=== PATIENT | female | born 1995 | race African-American/Black ===

== ENCOUNTER 2017-02-04 11:24 | Emergency (ER) | payer OTHER ==
[~2017-02-04] VITALS: Ht 175.3 cm; Wt 75.0 kg
[~2017-02-04 11:24] MED LIST: IBUP800 PO
[2017-02-04 11:27] VITALS: BP 128/90; PULSE 86; RESP 20; TEMP 98.7; O2SAT 99
[2017-02-04] MEDS ORDERED: CYCL1TAB29 PO (11:42)
[2017-02-04] MEDS ORDERED: NAPR500 PO (11:42)
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
== END 2017-02-04 16:02 | disposition home or self-care (01) ==
LOC: EDTENT 11:24
DX: S16.1XXA Strain of muscle, fascia and tendon at neck level, initial encounter (principal); J45.909 Unspecified asthma, uncomplicated; V43.52XA Car driver injured in collision with other type car in traffic accident, initial encounter
CPT/HCPCS: 99283